=== PATIENT | male | born 1960 | race Caucasian/White ===

== ENCOUNTER 2016-08-11 11:51 | Outpatient (CLI) | payer OTHER ==
[~2016-08-11 11:51] MED LIST: ALEVE220 MG PO; ASPIRIN ADULT L81 M1 PO; BACTRIM DS1 TAB PO; LIPITOR80 MG PO; PROBIOTI1 PO
--- NOTE | 2016-08-11 12:29 | DIAGNOSTIC IMAGING REPORT ---
PROCEDURE: XR CHEST 2 VIEW INDICATION: PRE OP TECHNIQUE: PA and lateral views. COMPARISON: None. FINDINGS: Lungs are clear. Heart and mediastinum are normal. Thorax is normal. IMPRESSION: 1. Negative chest.
== END 2016-08-11 23:00 ==
LOC: RT SRH 11:51
DX: Z01.818 Encounter for other preprocedural examination (principal); Z01.810 Encounter for preprocedural cardiovascular examination; Z01.812 Encounter for preprocedural laboratory examination
CPT/HCPCS: 90001; 90004; 90074; 90100; 90155; 91004; 91286; 94001; 94060; 95059; 95150

== ENCOUNTER 2016-08-20 15:35 | Inpatient (IN) | payer OTHER ==
--- NOTE | 2016-08-11 12:42 | HISTORY AND PHYSICAL ---
ADMITTED: 08/23/2016 CHIEF COMPLAINT: 1. Right hip pain. HISTORY OF PRESENT ILLNESS: The patient has had chronic pain in his right hip now for a number of years, has gotten progressively more severe as time has passed. He is scheduled for a hip replacement and would like to proceed with the hip replacement surgery. The nature of the procedure, where the incision would be, what bone would be removed , what the components look like and how they would be replaced, the risk of infection, of dislocation, of problems with healing, of need for further surgery, of infection with possible need for removal of the components and placement of antibiotic spacer, of blood clots of bleeding with need for blood transfusion and of anesthesia complications of pneumonia, bedsores for immobilization and difficulty with mobilization afterwards, all were explained to him in the clearest possible detail and he understands and accepts and would like to proceed with the surgery. MEDICAL/SURGICAL HISTORY: Past history is positive in that he suffers from hyperlipidemia. He has COPD. He has acid reflux disease and he has hypertension. The patient also had an infection on his left leg and had a previous injury to his right ankle as well. MEDICATIONS: 1. He currently lists aspirin 81 mg a day. 2. Atenolol 50 mg takes 1-1/2 tablets daily. 3. Atorvastatin 40 mg a day. 4. Atrovent inhaler 17 mcg per actuation. It lists here that he takes 2 puffs 4 times a day, but he says he only uses it on a p.r.n. basis and rarely uses it. 5. Ibuprofen, he takes 800 mg 3 times a day as needed for pain. 6. Lisinopril 20 mg/hydrochlorothiazide 25 mg takes 1 daily. ALLERGIES: 1. NO KNOWN ALLERGIES. SOCIAL HISTORY: Positive in that he is a former smoker, he quit about 2 years ago, is not smoking at all now. FAMILY HISTORY: Negative for any type of anesthesia or bleeding problems. REVIEW OF SYSTEMS: Negative for any loss of consciousness, seizure disorder, problems with vision or hearing or balance. Cardiorespiratory is positive in that he is always mildly short of breath and he says he has not had any wheezing, any cough or congestion, fever or chills recently. GI is negative for any nausea, vomiting, diarrhea, or blood in his stools. Genitourinary: He has not had any blood in his urine or dysuria. Musculoskeletal, he says he has no complaints other than the right hip pain at this time. PHYSICAL EXAMINATION: GENERAL: Shows his weight to be 225 pounds. Height 6 feet 7 inches, BMI is 35. Blood pressure 112/65, pulse 59, respirations 16, temperature is 98.6. HEENT: His head is normocephalic and atraumatic. His eyes are clear. Extraocular muscles intact. Hearing is grossly normal. There is no drainage from the ear canals. The face is symmetrical. NECK: Without jugular venous distention. CHEST: Symmetrical. ABDOMEN: Mild to moderately obese. HEART AND LUNGS: Will examine when he comes to the hospital. EXTREMITIES: Exam of the right lower extremity I will leave you to the previous computer generated clinic notes but he has severe arthritic changes involving the right hip and he has minimal edema distally in the leg, has active dorsiflexion and plantarflexion of the foot and there are no skin changes or other abnormalities of the hip which would preclude us from doing his hip replacement surgery. IMPRESSION: Arthritis of the right hip. PLAN: For right hip replacement as noted above and will see him in the hospital for that surgery barring unforeseen complication or problem.
[~2016-08-20] VITALS: Ht 182.9 cm; Wt 108.1 kg
[~2016-08-20 15:35] MED LIST changes: +ATENOLOL50 MG PO; +LISINOPRIL/HYDR1 TA2 PO; +MUPIROCIN2 %; +VENTOLIN HFA IN
[2016-08-23] VITALS (12 sets, daily range): BP systolic 72–134; BP diastolic 52–76
--- NOTE | 2016-08-23 10:05 | NUR ---
PATIENT ASSESSMENT AND MED/ALLERGY REVIEW COMPLETE. VITALS STABLE. SURGICAL SITE MARKED BY PATIENT. IV STARTED IN R FOREARM WITH 1 ATTEMPT. LR HUNG AT TKO. VANCOMYCIN STARTED AT ORDERED RATE OF 270ML/HR. 5 MINUTES AFTER STARTING VANCO, PATIENT BECAME DIAPHORETIC AND NAUSEATED. RN STOPPED VANCO INFUSION AND FLUSHED LINE WITH LR. RN CALLED OR DESK AND REPORTED INCIDEDNT TO PROCEDURAL NURSE. PATIENT SENT TO OR WITH VANCO CLAMPED AND LR RUNNING.
--- NOTE | 2016-08-23 11:05 | NUR ---
DELAY IN START TIME DUE TO DELAY IN VANCOMYCIN NOT BEING FINISHED
--- NOTE | 2016-08-23 12:57 | NUR ---
REC'D FROM OR; SPONT RESP. RT LET IMMOBILIZER ON - DSG=D\\I AND ICE APPLIED. AWAKE AND CO-OP - WIGGLES TOES. DP AND PT = AND STRONG. 1315: XRAY HERE FOR POST OP XRAY. FLUID BOLOUS OF 200ML COMPLETED AND ROBINOL GIVEN FOR HR < 50; PT ASYMPTOMATIC. 1330: PT REPOSITIONED INTO SIDE WITH PILLOW UNDER RT HIP. PT REPORTS, "MY BUTT CHEEK IS UMCOMFORTABLE." TAKING ICE CHIPS VERY WELL. CMS =GOOD. 1348; GOOD RESULTS FROM PAIN MEDS.
--- NOTE | 2016-08-23 13:03 | NUR ---
DELAY IN START DUE TO DELAY IN VANCOMYCIN BEING GIVEN. RIGHT PEDAL PULSE PRESENT AND STRONG PRE AND POST OP.
--- NOTE | 2016-08-23 13:49 | OPERATIVE REPORT ---
DATE OF SURGERY: 08/23/2016 SURGEON: JOSE A JACOBS MD PREOPERATIVE DIAGNOSIS: 1. Right hip arthritis POSTOPERATIVE DIAGNOSIS: 1. Right hip arthritis PROCEDURE PERFORMED: 1. Operation proposed is right hip replacement; the operation performed is right hip replacement ESTIMATED BLOOD LOSS: Less than 200 mL. PATHOLOGY SPECIMEN: Right femoral head and neck. COMPLICATIONS: There were no complications. SURGICAL FINDINGS: Right hip arthritis. SURGICAL TECHNIQUE: The patient was taken to the operating room on 08/23/2016. He was given a general anesthetic. There was a little delay in getting antibiotics into him, but once he had his vancomycin, then we made an incision along the lateral side of the right hip. This was done with him in the left lateral position. After sterile prepping and draping, the incision was carried down through the subcutaneous tissue. The deep fascia was incised in line with the fibers. The sciatic nerve was identified and protected during the course of the surgery. A marker suture was placed on the posterolateral aspect of the femur, as far distal as I could get. Then we dissected down to the short external rotator muscles. These were released. The piriformis tendon was tagged with a #2 nonabsorbable braided suture. The capsule was opened in a T-shape fashion and the limbs of the capsule tagged with the same nonabsorbable braided #2 suture. The patient then had the hip dislocated. Using the broach as a guide, we resected the femoral head and neck after measuring from the tag suture up to the center of the femoral head. Then we resected the femoral head and neck with an oscillating saw and removed it. He had removal of the rather extensive synovitis and the remaining portion of the ligamentum teres and the major portion of the acetabular labrum. Then reaming commenced, and we reamed in a stepwise fashion up to a final 59 mm size and then inserted a 60 mm acetabular component, taking great care to get the proper anteversion and abduction of the cup. We then secured it with a single screw posterosuperiorly, drilling with the supplied drill from the [employer] set, and then placing a single self-tapping screw in the hole. It was very tight, very secure. I then got the 0 offset, 40 mm internal diameter liner and seated it into place. We then turned our attention to the femur. The [employer] cutter osteotome was used to osteotomize the remaining lateral portion of the femoral neck. The canal finder was used to find the canal. The canal was broached, starting with a #1 and working in a stepwise fashion up to a final #7 size. Then we put the +0 head on that, measured from the tag suture. The patient was about 1 cm short. On preoperative evaluation in the preoperative holding area, I had him lie down, and you could see his right leg was shorter than the left. He had not really noticed that, but he was clearly short from the wear on the leg. So we measured in surgery, and he measured about 1.5 cm longer with the +0 head. We got the -4 head, placed that on there, and with that he was 8.5 cm from tag suture to the center of the femoral head, where he had been 7.5 mm with the [place] femoral head. So we lengthened him about 1 cm. We checked the stability of the hip with this combination, and he was very stable. I could not dislocate him or even come close to subluxing him in any position. In extension and then with flexion, I could adduct him and internally rotated him to 70 degrees before he would starts to sublux, and almost 90 degrees before it dislocated. We got the # 7 femoral stem, the -4 head. We placed the stem down into the femur. It seated down securely, and then placed the 40 mm diameter, -4 length femoral head on the taper, seated it into place, and then reduced the hip. I closed the capsule using interrupted [id number] sutures of #2 nonabsorbable braided suture material. Repaired the piriformis tendon back with the same material, closed the deep fascia after checking the sciatic nerve to make sure it was in good condition, which it was, and closed that with a single [id number] number 2 nonabsorbable braided suture and then ran from bottom to top with #1 Polysorb suture. The subcutaneous layer was closed with 2-0 Vicryl running suture, the skin with subcuticular 3-0 Vicryl suture. It was dressed with Xeroform and ABD. They were taped securely in place. He was placed in a knee immobilizer. He was awakened, moved in the supine position and taken to the recovery room. He was in stable condition.
--- NOTE | 2016-08-23 14:01 | DIAGNOSTIC IMAGING REPORT ---
PROCEDURE: XR HIP 2VW W W/O AP PELVIS-RT INDICATION: Post op JAE right TECHNIQUE: AP view of the pelvis and hips with lateral view of the right hip. COMPARISON: None. FINDINGS: RIGHT HIP: Total right hip arthroplasty is in satisfactory position. Postop operative changes of the soft tissues. PELVIS: Severe narrowing of the left hip joint space with broadening of the femoral neck suggestive of hip dysplasia. No suspicious osseous lesions. Soft tissues are unremarkable. IMPRESSION: 1. Total right hip arthroplasty with normal postoperative appearance 2. 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
--- NOTE | 2016-08-23 15:07 | NUR ---
PT ARRIVED TO FLOOR IN BED, C/O UNCOMFORTABLE BUTT PAIN DESPITE BEING LETHARGIC. NO SOB, RT CALLED TO BEGIN CAPNOGRAPHY. DRESSING CDI, NS HANGING. DENTURES IN A CUP AT BEDSIDE. SEVERAL VISITORS PRESENT AND SPEAKING WITH PT UPON ARRIVAL. BLOOD PRESSURES ARE LOW, MOST CURRENT IS 83/52 AND THIS RN CALLED PACU TO SPEAK WITH ARLENE BUT MD IS IN SURGERY. MSG PASSED ON VIA FRAN BUTT. PT IS TOLERATING ICE CHIPS WITHOUT NAUSEA. WILL ADVANCE DIET TOLERATED. MORA
--- NOTE | 2016-08-23 17:56 | NUR ---
TOLD DR DELUNA ABOUT PATIENTS LOW BLOOD PRESSURE. NO OTHER NEW ORDERS FROM MD AT THIS TIME. HE SAID NOT TO WORRY ABOUT A BOULS AT THIS TIME.
--- NOTE | 2016-08-23 18:08 | Progress Note ---
Subjective General Note Date: August 23, 2016 Admission Date: August 23, 2016 Hospital Day: 1 PCP: [PCP] Status: Inpatient, ACU Advanced Directive: FULL CODE Room: 209-A Admission History: The patient is a 56-year-old white male with a significant past medical history of asthma/COPD, degenerative joint disease, hypertension, hypercholesterolemia, who presented to [facility] secondary to degenerative joint disease for JAE right side. The patient underwent operative and attention and was noted to have perioperative hypotension. He received vigorous IV fluid support but exhibited persistent hypotension. EKG showed no acute ST-T wave changes. The patient experienced no history of shortness of breath, chest pain, palpitations, nausea, vomiting, or diaphoresis. Troponin was within normal limits. Secondary to persistent hypotension I was consulted by Dr. Wright for medical evaluation. Subjective: The patient states he is doing well at this time. Denies shortness of breath. Denies any history of chest pain, palpitations, diaphoresis, nausea, or vomiting. He has mild hip pain associated with recent surgery. Has no physical complaints at this time other than that. Patient requests: None Physical Exam Vital Signs / I&Os Vital Signs Date Time Temp Pulse Resp B/P Pulse O2 O2 Flow FiO2 Ox Delivery Rate 08/23 1745 96.4 56 22 87/61 97 Nasal 3.0 Cannula 08/23 1644 45 22 88/55 98 Nasal 3.0 Cannula 08/23 1616 53 22 84/60 99 Nasal 3.0 Cannula 08/23 1545 46 22 84/54 99 Nasal 3.0 Cannula 08/23 1531 45 22 99 3.0 08/23 1530 97.9 45 22 73/52 99 Nasal 3.0 Cannula 08/23 1430 97.0 47 16 83/52 100 Nasal 2.0 Cannula 08/23 1420 96.4 53 16 91/61 97 Nasal 3.0 Cannula 08/23 0918 97.3 56 17 123/78 100 General Appearance Alert, Oriented X3, Cooperative, No acute distress Lungs Clear to auscultation, Normal air movement Cardiovascular Normal S1 and S2, No murmurs, gallops, rubs, Regular rhythm, bradycardia Abdomen Normal bowel sounds, Soft, No tenderness Neurological Cranial nerves intact, No lateralizing signs Psych/Mental Status Mental status normal, Mood normal LAB Results Laboratory Tests 08/23 1450 Hematology WBC (4.5 - 11.5 K/uL) 9.6 RBC (4.50 - 5.90 M/uL) 3.42 Hgb (13.5 - 17.5 gm/dL) 11.0 Hct (41.0 - 53.0 %) 33.0 MCV (80 - 100 fL) 96 MCH (26 - 34 pg) 32 RDW (11.6 - 14.8 %) 14.5 Neut % (Auto) (50 - 75 %) 70.8 Lymph % (Auto) (25 - 40 %) 17.9 [place] % (Auto) (3 - 14 %) 9.7 Eos % (Auto) (0 - 4 %) 1.4 Baso % (Auto) (0 - 2 %) 0.2 Plt Count, EDTA (150 - 400 K/uL) 250 PUBS MCHC (31 - 37 g/dL) 34 Assessment and Plan Problem List 1. Hypotension Plan -The patient has postoperative hypotension -The patient treated preoperatively with beta blockers, CHRIS inhibitor, diuretics. -IV fluid support -Consider pressor agents for persistent hypotension unresponsive to IV fluids. -Hold beta shaye/CHRIS inhibitor/diuretics until further notice 2. DJD (degenerative joint disease) Status Chronic Onset Date Unknown Plan -Patient with history of degenerative joint disease requiring right hip JAE -Perioperative history unremarkable other than hypertension noted above -Follow up with orthopedics Current status: Fair, unstable Anticipated discharge date: Per orthopedics recommendations Anticipated discharge placement: correction facility-rehabilitation Patient care time: Time in chart review, patient interview, physical exam, CPOE, and care documentation: 35 mins Visit to patient today: 1 Complexity of care: Moderate E&M Codes Rounding: Inpt-Moderate/[id number]
--- NOTE | 2016-08-23 19:32 | NUR ---
TOLD DR DELUNA ABOUT PATIENTS LOW BLOOD PRESSURE STILL ADN LOW HR. ALSO TOLD ABOUT TROPONIN RESULTS. GAVE ME AN ORDER TO BOULS PT AGAIN.
[2016-08-24] VITALS (17 sets, daily range): BP systolic 89–153; BP diastolic 62–85
--- NOTE | 2016-08-24 00:08 | NUR ---
KAVIN DELUNA ABOUT PTS TROPONIN LEVELS. NOT CONCERNED AT THIS TIME, NO NEW ORDERS FROM MD AT THIS TIME. PT RESTIGN IN BED NOW. IN NO DISTRESS. WILL CONTINUE TO MONITOR B/P.
--- NOTE | 2016-08-24 05:05 | NUR ---
Monitoring BP closely throughout the night. BP has been stable throughout shift. Pt. makes needs known. Pain medication administered prn. Dressing to R hip CDI. Ice pack to R hip. WCTM.
--- NOTE | 2016-08-24 07:08 | Progress Note ---
Subjective General VSS Afeb today. He was somewhat hypotensive last pm, but he is stable and WNL this am. Hgb 11.2 WBC 9.2 BUN 35 Cr 1.4 Ca 7.9 FBS 124 No c/o today. No SOB, CP, N, V, or D. NMV intact distally. PT today.
--- NOTE | 2016-08-24 10:16 | NUR ---
ALERT AND ORIENTED PT WHO HAS 6/10 R HIP PAIN AND HAS BEEN MEDICATED WITH OXYCODONE 10 MG PO. VSS. DRSG TO R HIP D/I WITH 1+ EDEMA TO R AND TRACE EDEMA TO LLE. DENIES NAUSEA AND WAS EATING PANCAKES HIS FRIEND HAD BROUGHT IN. IV IS PATENT TO RFA.
--- NOTE | 2016-08-24 17:06 | NUR ---
Pt is sitting up in bed without pain. Denies sob, wearing NC 2L and no wheezing present. Abd is distended and soft, states hx of hiatal hernia, perhaps normal fluffiness. Dressing cdi, ice adjacent. No complaints at this time. wctm.
--- NOTE | 2016-08-24 17:22 | NUR ---
BG 120
--- NOTE | 2016-08-24 18:52 | NUR ---
I discussed with the patient their current medications, possible side effects, and answered questions.
--- NOTE | 2016-08-24 21:18 | Progress Note ---
Subjective General Note Date: August 24, 2016 Admission Date: August 23, 2016 Hospital Day: 2 Status: Inpatient, ACU Advanced Directive: FULL CODE Room: 209-A Admission History: The patient is a 56-year-old white male with a significant past medical history of asthma/COPD, degenerative joint disease, hypertension, hypercholesterolemia, who presented to [facility] secondary to degenerative joint disease for JAE right side. The patient underwent operative and attention and was noted to have perioperative hypotension. He received vigorous IV fluid support but exhibited persistent hypotension. EKG showed no acute ST-T wave changes. The patient experienced no history of shortness of breath, chest pain, palpitations, nausea, vomiting, or diaphoresis. Troponin was within normal limits. Secondary to persistent hypotension I was consulted by Dr. Wright for medical evaluation. Subjective: The patient states he is doing well at this time. Pain adequately controlled. States he is slightly warm. No other complaints at this time. Patient requests: Patient wishes to have a fan in his room Medications and Allergies Medications Current Medications Sig/Christiano Start time Last Medication Dose Route Stop Time Status Admin Enoxaparin Sodium 40 MG DAILY 08/24 0900 AC 08/24 SC 0901 Ferrous Sulfate 325 MG BIDWC 08/24 0900 AC 08/24 PO 1734 Albuterol/Ipratropium 3 ML RTQ6H 08/23 1830 AC 08/24 IN 2011 Atorvastatin Calcium 80 MG 1800 08/23 1800 AC 08/24 PO 1734 Hydromorphone HCl 1 MG Q1H PRN 08/23 1415 AC 08/24 IV 0029 Hydromorphone HCl 2 MG Q1H PRN 08/23 1415 AC IV Albuterol Sulfate 2.5 MG Q4H PRN 08/23 1030 AC IN Celecoxib 200 MG DAILY PRN 08/23 1030 AC 08/24 PO 0901 Docusate Sodium 100 MG BID PRN 08/23 1030 AC 08/24 PO 1735 Lactated Ringer's 1,000 ML ASDIRECTED 08/23 1030 AC 08/24 IV 1734 Lorazepam 1 MG QHS PRN 08/23 1030 AC PO Naloxone HCl 0.4 MG PRN PRN 08/23 1030 AC IV Ondansetron HCl 4 MG Q4H PRN 08/23 1030 AC IV Oxycodone HCl See Dose Q4H PRN 08/23 1030 AC 08/24 Insts (1) PO 0901 Dose Instructions: (1)Oxycodone HCl: 5 - 10 MG Allergies Coded Allergies: NKA (08/23/16) Reconcile Medications Scheduled Medications Aspirin (Aspirin Adult Low Dose) 81 MG TAB 81 MG PO DAILY (Reported) Atenolol (Atenolol 50 MG) 50 MG TAB 1.5 TAB PO DAILY (Reported) Atorvastatin Calcium (Lipitor 80 MG) 80 MG TAB 80 MG PO DAILY (Reported) Lisinopril & Hydrochlorothiazi (Lisinopril/Hydrochlorothizide 20/25 MG) 1 TAB TAB 1 TAB PO DAILY (Reported) Scheduled PRN Medications Albuterol Sulfate (Ventolin Hfa) AER 2 DOSE IN Q4H PRN COPD? (Reported) Naproxen Sodium (Aleve 220 MG) 220 MG CAP 220 MG PO Q8H PRN FOR JOINT PAIN ( Reported) Miscellaneous Medications Mupirocin (Pseudomonas Fluores (Mupirocin) 2 % OIN (Reported) Discontinued Medications Probiotic Product (Probiotic) CAP 1 PO DAILY (Reported) Discontinued reason: No Longer Taking Sulfamethoxazole-Trimethoprim (Bactrim DS (double strength)) 1 TAB TAB 800 MG PO BID (Reported) Discontinued reason: No Longer Taking Physical Exam Vital Signs / I&Os Vital Signs Date Time Temp Pulse Resp B/P Pulse O2 O2 Flow FiO2 Ox Delivery Rate 08/24 1905 121/85 08/24 1803 99.7 93 22 126/75 98 Nasal 2.0 Cannula 08/24 1619 2.0 08/24 1423 98.8 62 22 117/62 90 Room Air 08/24 1149 3.0 08/24 1023 98.8 73 20 122/74 100 Nasal 3.0 Cannula 08/24 1002 75 14 97 3.0 08/24 0739 64 23 99 3.0 08/24 0624 99.0 66 18 116/75 100 Nasal 3.0 Cannula 08/24 0517 120/79 08/24 0512 74 16 114/80 98 3.0 08/24 0442 114/80 08/24 0414 116/74 08/24 0340 113/79 08/24 0238 105/70 08/24 0218 102/67 08/24 0218 58 18 89/62 97 3.0 08/24 0204 98.8 56 16 89/62 100 Nasal 2.5 Cannula 08/24 0113 106/68 08/24 0018 2.5 08/24 0015 130/77 08/23 2347 117/76 08/23 2306 64 14 93 08/23 2239 98.1 59 18 134/69 87 Nasal 2.5 Cannula 08/23 2144 52 20 100 2.0 I&O 08/24 0000 08/23 1600 08/23 0800 Intake Total 1340 1680 Output Total 420 200 Balance 920 1480 General Appearance Alert, Oriented X3, Cooperative, No acute distress Lungs Clear to auscultation, Normal air movement Cardiovascular Regular rate and rhythm, Normal S1 and S2, No murmurs, gallops, rubs Abdomen Normal bowel sounds, Soft, No tenderness Extremities No cyanosis, No clubbing Neurological Cranial nerves intact, Strength 5/5 x4 ext's, No lateralizing signs Psych/Mental Status Mental status normal, Mood normal LAB Results Laboratory Tests 08/24 08/24 0535 0535 Chemistry Plasma Sodium (136 - 145 mmol/L) 137 Plasma Potassium (3.5 - 5.1 mmol/L) 4.2 Plasma Chloride (98 - 107 mmol/L) 104 CO2 (Enzymatic) (21 - 32 mmol/L) 27 BUN (7 - 18 mg/dL) 35 Creatinine (0.6 - 1.3 mg/dL) 1.4 Est GFR ( Amer) (mL/min) >60 Est GFR (Non-Af Amer) (mL/min) 55.92 Glucose (70 - 110 mg/dL) 124 Plasma Calcium (8.5 - 10.1 mg/dL) 7.9 Troponin (0.00 - 1.5 ng/mL) <0.05 Hematology WBC (4.5 - 11.5 K/uL) 9.4 RBC (4.50 - 5.90 M/uL) 3.42 Hgb (13.5 - 17.5 gm/dL) 11.2 Hct (41.0 - 53.0 %) 33.1 MCV (80 - 100 fL) 97 MCH (26 - 34 pg) 33 RDW (11.6 - 14.8 %) 14.5 Neut % (Auto) (50 - 75 %) 73.8 Lymph % (Auto) (25 - 40 %) 16.2 [place] % (Auto) (3 - 14 %) 8.8 Eos % (Auto) (0 - 4 %) 0.9 Baso % (Auto) (0 - 2 %) 0.3 Plt Count, EDTA (150 - 400 K/uL) 224 PUBS MCHC (31 - 37 g/dL) 34 Assessment and Plan Problem List 1. DJD (degenerative joint disease) Status Chronic Onset Date Unknown Plan -Patient doing well status post surgery -Follow per orthopedics 2. Azotemia Status Acute Onset Date Unknown Plan -Patient shows mild azotemia -Appears prerenal despite significant intake yesterday. -Monitor 3. Hypotension Plan -Resolved -We'll place back on low-dose beta shaye as heart rate has improved significantly -Most recent heart rate 93 bpm -Monitor closely -Consider addition of CHRIS inhibitor with stable blood pressure Current status: Fair, improved Anticipated discharge date: Anticipated discharge in 1-2 days Anticipated discharge placement: nursing home facility-rehabilitation Patient care time: Time in chart review, patient interview, physical exam, CPOE, and care documentation: 25 mins Visit to patient today: 1 Complexity of care: Moderate DVT prophylaxis: Lovenox 40 mg subcutaneous daily E&M Codes Rounding: Inpt-Moderate/[id number]
--- NOTE | 2016-08-24 22:17 | NUR ---
PT A&O X3, ABLE TO MAKE NEEDS KNOWN, PLEASANT AND COOPERATIVE DURING CARE. WEARING RLE BRACE IN BED. LS CTA, ON 1L O2 VIA NC WHILE SLEEPING, SATS 99%. SLIGHT SWELLING IN RLE COMPARED TO LLE, PEDAL PULSES STRONG, DENIES ANY NUMBNESS OR TINGLING. C/O MODERATE R HIP PAIN, REQUESTED PRN OXYCODONE. USING URINAL IN BED, PRODUCING CLEAR YELLOW URINE. STATES FLATULENCE PRESENT OCCASIONALLY, NO BM SINCE ADMIT FOR SURGERY, BT PRESENT IN ALL QUADS. B/P ELEVATED (153/84), N.O. FOR METOPROLOL BID ADMINISTERED. LOW GRADE FEVER, 99.5, AND C/O MODERATE DIAPHORESIS BUT NO OTHER SX PRESENT.
--- NOTE | 2016-08-25 00:03 | NUR ---
PT CONTINUES TO PRESENT LOW GRADE FEVER. LAST ORAL TEMP 99.9 WITH MILD DIAPHORESIS, NO OTHER COMPLAINTS. MD NOTIFIED BY PHONE, ISSUED N.O. FOR PRN TYLENOL IF TEMP OVER 100. PHARMACY FAXED. PT RESTING COMFORTABLY IN BED.
[2016-08-25 02:32] VITALS: BP 137/78
--- NOTE | 2016-08-25 03:13 | NUR ---
PT ARRIVED AT UNIT VIA GURNEY AT 0045. SBA DURING TRANSFER TO BED AND AMBULATION TO BATHROOM. A&O X3, ABLE TO MAKE NEEDS KNOWN, PLEASANT AND COOPERATIVE. LUNG SOUNDS CLEAR, ON RA. HEART MURMUR NOTED, RHYTHM REGULAR. 2+ BLE EDEMA PRESENT. RADIAL AND PEDAL PULSES PALPABLE BILATERALLY. C/O SEVERE STABBING PAIN IN BILAT GLUTS NEAR RECTUM R/T BLANCHABLE REDDENED AREA DUE TO FREQUENT BM FROM ROUTINE ADMINISTRATION OF LACTULOSE. STOOL SOFT, UNFORMED, WITH MANY UNDIGESTED FRAGMENTS NOTED. AREA CLEANSED AND PROTECTIVE CREAM APPLIED. PRN TYLENOL ADMINISTERED PER REQUEST. PT COMFORTABLE AT REST, REFUSED WAFFLE MATTRESS. ADMIT PROCESS COMPLETED, ORDERS ACKNOWLEDGED, INFUSION OF PRBs STARTED AT APPROX 0230 AT 100 ML/HR, NO REACTION NOTED DURING FIRST 45 MIN, INFUSION RATE INCREASED TO 120 ML/HR AT 0315. VSS.
[2016-08-25 06:53] VITALS: BP 137/79
[2016-08-25 10:42] VITALS: BP 154/89
--- NOTE | 2016-08-25 10:43 | NUR ---
PT HAS BEEN VERY SLEEPY THIS AM. HE TRANSFERRED TO CHAIR FOR BREAKFAST. MOTHER AND FRIEND AT BEDSIDE. IV IS PATENT. PT USING INCENTIVE SPIROM[employer]ER [employer] CC. R HIP DRESSING IS DRY AND INTACT. PT WAS FEBRILE AND DR JACOBS IS AWARE.
[2016-08-25] MEDS ORDERED: OXAYDO5 MG PO (11:04)
[2016-08-25] MEDS ORDERED: COATED ASPIRIN325 MG PO (11:08)
--- NOTE | 2016-08-25 11:10 | Provider's Discharge Care Plan ---
Problem, Goal, Plan Problem List 1. DJD (degenerative joint disease) 2. Osteoarthritis, hip, bilateral
--- NOTE | 2016-08-25 11:10 | Provider's Discharge Care Plan ---
Problem, Goal, Plan Problem List 1. DJD (degenerative joint disease) 2. Osteoarthritis, hip, bilateral
--- NOTE | 2016-08-25 11:59 | NUR ---
pt completed JAE exercises with written and verebal instruction. pt stated he has a ramp built and has an electric w/c that he can use to get up into his house. He feels safe returning home and states he will have someone with him to help. pt needs HHPT for further strengthening and increasing mobility. pt can d/c home once medically cleared with new AD at home.
[2016-08-25 14:57] VITALS: BP 157/86
--- NOTE | 2016-08-25 16:17 | Progress Note ---
Subjective General The patient is a 56-year-old white male with a significant past medical history of asthma/COPD, degenerative joint disease, hypertension, hypercholesterolemia, who presented to [facility] secondary to degenerative joint disease for JAE right side. The patient underwent operative and attention and was noted to have perioperative hypotension. He received vigorous IV fluid support but exhibited persistent hypotension. EKG showed no acute ST-T wave changes. The patient experienced no history of shortness of breath, chest pain, palpitations, nausea, vomiting, or diaphoresis. Troponin was within normal limits. Patient this morning was doing well, without many complaints except for the desire to go home. Patient has no further evidence of hypotension or thought process changes Constitutional Denies: Fever, Chills, Sweats, Weakness, Malaise, Other. ENT Denies: Ear Pain, Ear Discharge, Nose Pain, Nasal Discharge, Nasal Congestion, Mouth Pain, Mouth Swelling, Throat Pain, Throat Swelling, Other. Respiratory Denies: Cough, Dry, SOB w/exertion, Wheezing, Hemoptysis, Pleuritic Pain, Sputum , Other. Cardiovascular Denies: Chest Pain, Palpitations, Orthopnea, PND, Edema, Light-headedness, Other. Genitourinary Denies: Dysuria, Frequency, Incontinence, Hematuria, Retention, Other. Musculoskeletal Leg Pain, Other (hip pain- controlled ). Skin Denies: Rash, Lesions, Jaundice, Bruising, Other. Neurological Denies: Weakness, Numbness, Incoordination, Change in speech, Confusion, Seizures, Other. Physical Exam Vital Signs / I&Os Vital Signs Date Time Temp Pulse Resp B/P Pulse O2 O2 Flow FiO2 Ox Delivery Rate 08/25 1457 98.4 103 18 157/86 96 Room Air 08/25 1042 98.6 92 18 154/89 100 Room Air 08/25 0653 100.0 72 20 137/79 96 Room Air 08/25 0300 99.0 08/25 0232 99.7 88 18 137/78 96 Nasal 1.0 Cannula 08/25 0040 100.2 08/24 2308 99.9 69 20 152/84 96 Nasal 1.0 Cannula 08/24 2212 84 153/84 08/24 2159 Nasal 1.0 Cannula 08/24 2154 99.5 08/24 1905 121/85 08/24 1803 99.7 93 22 126/75 98 Nasal 2.0 Cannula I&O 08/24 0800 08/24 1600 08/25 0000 Intake Total 8829 443 3046 Output Total 3081 810 9178 Balance 198 85 315 General Appearance Alert, Oriented X3, No acute distress HEENT PERRLA, Moist mucous membranes Lungs Clear to auscultation Cardiovascular Normal S1 and S2, No murmurs, gallops, rubs Abdomen Soft, No tenderness Extremities - wound site shows no evidence of large hematoma or active bleeding Skin No Breakdown, No Significant Lesions Neurological Normal tone, Sensation intact, Cranial nerves intact, No lateralizing signs Psych/Mental Status Mood normal LAB Results Laboratory Tests 08/25 0510 Chemistry Plasma Sodium (136 - 145 mmol/L) 139 Plasma Potassium (3.5 - 5.1 mmol/L) 4.0 Plasma Chloride (98 - 107 mmol/L) 104 CO2 (Enzymatic) (21 - 32 mmol/L) 29 BUN (7 - 18 mg/dL) 20 Creatinine (0.6 - 1.3 mg/dL) 1.2 Est GFR ( Amer) (mL/min) >60 Est GFR (Non-Af Amer) (mL/min) >60 Glucose (70 - 110 mg/dL) 120 Plasma Calcium (8.5 - 10.1 mg/dL) 8.4 Hematology WBC (4.5 - 11.5 K/uL) 10.6 RBC (4.50 - 5.90 M/uL) 3.61 Hgb (13.5 - 17.5 gm/dL) 11.5 Hct (41.0 - 53.0 %) 34.7 MCV (80 - 100 fL) 96 MCH (26 - 34 pg) 32 RDW (11.6 - 14.8 %) 14.8 Neut % (Auto) (50 - 75 %) 70.3 Lymph % (Auto) (25 - 40 %) 17.7 [place] % (Auto) (3 - 14 %) 11.1 Eos % (Auto) (0 - 4 %) 0.7 Baso % (Auto) (0 - 2 %) 0.2 Plt Count, EDTA (150 - 400 K/uL) 207 PUBS MCHC (31 - 37 g/dL) 33 Assessment and Plan Problem List 1. DJD (degenerative joint disease) Status Chronic Onset Date Unknown Plan Patient is doing well status post surgery Patient will be seeing physical therapy and working with them Patient has no evidence of bleeding or infection at surgical site Rest management as per orthopedics 2. Azotemia Status Acute Onset Date Unknown Plan Patient has a diagnosis of mild azotemia Most likely secondary to dehydration Currently patient's renal function is back to baseline Patient GFR is greater than 60 at the moment We will continue with IV hydration discharge or if patient is eating adequately 3. Osteoarthritis, hip, bilateral Plan Patient is doing well status post surgery No significant amount of pain noticed 4. Hypotension Plan Patient's blood pressure has been normalized Patient should be back on beta shaye at home dose We'll monitor on telemetry until discharge
--- NOTE | 2016-08-25 20:20 | NUR ---
LATE ENTRY. PT DISCHARGED FROM ROOM 209A AT 1845. PT DRESSED WITH THE HELP OF HIS MOTHER. ALL PERSONAL BELONGINGS GATHERED BY PT AND TAKEN BY PT AND FAMILY. ALL DISCHARGE INSTRUCTIONS EXPLAINED TO AND GIVEN TO PT ALONG WITH TWO NEW SCRIPTS. ALL QUESTIONS ANSWERED. PT'S MOTHER ASKING QUESTIONS FOR PT AND ANSWERING QUESTIONS FOR PT. PT AND FAMILY STATE HE HAS A RAMP, WHEELCHAIR, WALKER AND 24 HOUR HELP AT HOME. EXPLAINED THAT HOME HEALTH WITH BE CONTACTING HIM TO SET UP CARE AND GAVE FAMILY THE PHONE NUMBER TO . PT WAS ESCORTED TO FRONT ENTRANCE BY [facility] VIA WHEELCHAIR. FAMILY AT PT'S SIDE. DISCHARGED AT 1845 TO HOME
== END 2016-08-25 18:45 | disposition home health service (06) | DRG 302 ==
LOC: SCU SRH 08-23 09:14 → U SRH 08-23 10:30 → ACUTE2 SRH 08-23 14:10
PROVIDERS: ADMIT Orthopaedic Surgery
PROC: 0SRC0JA Replacement of Right Knee Joint with Synthetic Substitute, Uncemented, Open Approach (ICD-10-PCS; principal; 2016-08-23 10:30)
DX: M17.11 Unilateral primary osteoarthritis, right knee (principal); M65.9 Synovitis and tenosynovitis, unspecified; I95.9 Hypotension, unspecified; R39.2 Extrarenal uremia; J44.9 Chronic obstructive pulmonary disease, unspecified; Z87.891 Personal history of nicotine dependence; E78.5 Hyperlipidemia, unspecified; I10 Essential (primary) hypertension; K21.9 Gastro-esophageal reflux disease without esophagitis; Z79.82 Long term (current) use of aspirin